=== PATIENT | female | born 1950 | race Caucasian/White ===

== ENCOUNTER 2019-10-27 12:20 | Outpatient (RCR) | payer OTHER, SELFPAY | END 2019-10-28 00:01 | LOC: SPT 12:20 | PROVIDERS: Family Provider Nurse Practitioner; Visit Provider Anesthesiology Pain Medicine | DX: M54.2 Cervicalgia (principal) | CPT/HCPCS: 97110; 97161 ==

== ENCOUNTER 2019-10-29 06:00 | Outpatient (RCR) | payer OTHER, MEDICARE, SELFPAY | END 2019-11-28 23:59 | disposition home or self-care (01) | LOC: SPO 06:00 | PROVIDERS: Family Provider Nurse Practitioner; PCP Nurse Practitioner; Visit Provider Anesthesiology Pain Medicine | DX: M54.2 Cervicalgia (principal) | CPT/HCPCS: 97110; 97112; 97140 ==

== ENCOUNTER 2019-12-01 06:00 | Outpatient (RCR) | payer OTHER, MEDICARE, SELFPAY | END 2019-12-27 23:59 | disposition home or self-care (01) | LOC: SPO 06:00 | PROVIDERS: Family Provider Nurse Practitioner; PCP Nurse Practitioner; Visit Provider Anesthesiology Pain Medicine | DX: M54.2 Cervicalgia (principal) | CPT/HCPCS: 97110; 97112; 97124; 97140; 97164; 97530 ==

== ENCOUNTER 2019-12-28 06:00 | Outpatient (RCR) | payer OTHER, MEDICARE, SELFPAY | END 2020-01-06 23:00 | disposition home or self-care (01) | LOC: SPO 06:00 | PROVIDERS: Family Provider Nurse Practitioner; PCP Nurse Practitioner; Visit Provider Anesthesiology Pain Medicine | DX: M54.2 Cervicalgia (principal) | CPT/HCPCS: 97110; 97164; 97530 ==

== ENCOUNTER → 2020-05-24 11:21 | Outpatient (BNVA) | payer MEDICARE, OTHER, SELFPAY | PROVIDERS: Family Provider Nurse Practitioner; PCP Nurse Practitioner; Visit Provider Nurse Practitioner | DX: R10.32 Left lower quadrant pain (principal) | CPT/HCPCS: 74018; 80053; 81000; 85025 ==

== ENCOUNTER 2020-07-28 08:31 | Outpatient (RCR) | payer OTHER, MEDICARE, SELFPAY | END 2020-07-28 23:59 | disposition home or self-care (01) | LOC: SPT 08:31 | PROVIDERS: PCP Nurse Practitioner; Referring Provider Anesthesiology Pain Medicine; Visit Provider Anesthesiology Pain Medicine | DX: M54.2 Cervicalgia (principal) | CPT/HCPCS: 97110; 97161 ==

== ENCOUNTER 2020-07-29 06:00 | Outpatient (RCR) | payer OTHER, MEDICARE, SELFPAY | END 2020-08-28 23:59 | disposition home or self-care (01) | LOC: SPT 06:00 | PROVIDERS: PCP Nurse Practitioner; Referring Provider Anesthesiology Pain Medicine; Visit Provider Anesthesiology Pain Medicine | DX: M54.2 Cervicalgia (principal) | CPT/HCPCS: 97110 ==

== ENCOUNTER 2020-08-29 06:00 | Outpatient (RCR) | payer OTHER, MEDICARE, SELFPAY | END 2020-09-27 23:59 | disposition home or self-care (01) | LOC: SPT 06:00 | PROVIDERS: PCP Nurse Practitioner; Referring Provider Anesthesiology Pain Medicine; Visit Provider Anesthesiology Pain Medicine | DX: M54.2 Cervicalgia (principal) | CPT/HCPCS: 97110 ==

== ENCOUNTER 2020-09-28 06:00 | Outpatient (RCR) | payer OTHER, MEDICARE, SELFPAY | END 2020-10-28 23:59 | disposition home or self-care (01) | LOC: SPT 06:00 | PROVIDERS: PCP Nurse Practitioner; Referring Provider Anesthesiology Pain Medicine; Visit Provider Anesthesiology Pain Medicine | DX: M54.2 Cervicalgia (principal) | CPT/HCPCS: 97110 ==

== ENCOUNTER → 2021-01-18 15:36 | Outpatient (BNVA) | payer MEDICARE, SELFPAY | PROVIDERS: PCP Nurse Practitioner; Visit Provider Nurse Practitioner | DX: B35.4 Tinea corporis (principal); F41.8 Other specified anxiety disorders | CPT/HCPCS: 80053; 81000; 84443; 85025 ==

== ENCOUNTER → 2021-07-05 15:06 | Outpatient (BNVA) | payer MEDICARE, OTHER, SELFPAY | PROVIDERS: PCP Nurse Practitioner; Visit Provider Nurse Practitioner | DX: F41.8 Other specified anxiety disorders (principal); K57.30 Diverticulosis of large intestine without perforation or abscess without bleeding; Z13.6 Encounter for screening for cardiovascular disorders | CPT/HCPCS: 80053; 80061; 84443; 85025 ==

== ENCOUNTER 2021-07-20 11:43 | Outpatient (CLI) | payer MEDICARE, OTHER, SELFPAY ==
[2021-07-20] MEDS: iohexol 300 mg/mL 50 mL Btl PO (12:46)
--- NOTE | 2021-07-20 13:00 | CT_ITS ---
WS: [id number] CT scan of the abdomen and pelvis with Oral and without IV contrast. Additional two-dimensional coron al and sagittal reconstruction was performed. 07/20/2021 Clinical Data: K57.30 - Diverticulosis of large intestine without perfor... Comparison: CT abdomen and pelvis, 09/22/2015. DLP: 717.[address] scans at [facility] use at least one of these dose optimization techniques: automated e xposure control; mA and/or kV adjustment per patient size (includes targeted exams where dose is matc hed to clinical indication); or iterative reconstruction. Findings: The lower lungs show no nodules, masses or effusions. The liver, spleen, adrenal glands and pancreas are normal. There are clips in the gallbladder fossa f rom a cholecystectomy. The kidneys show equal bilateral contrast excretion with no cyst or masses. The abdominal aorta is normal in size. No appendicitis or diverticulitis is seen. Oral contrast is in the stomach and small bowel and there is no bowel dilatation. There are numerous sigmoid diverticula. No abscess, adenopathy, ascites, mass , obstruction or free air is seen. The bladder is unremarkable. The uterus is normal. No inguinal hernia is seen. 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 CT/CT abdomen pelvis wo con [id number] Impression: 1. Numerous sigmoid diverticula but no diverticulitis. 2. Negative for acute intra-abdominal or pelvic abnormalities.
== END 2021-07-20 11:44 | disposition home or self-care (01) ==
PROVIDERS: PCP Nurse Practitioner; Visit Provider Nurse Practitioner
DX: K57.30 Diverticulosis of large intestine without perforation or abscess without bleeding (principal)
CPT/HCPCS: 74176; Q9967

== ENCOUNTER 2021-09-09 08:07 | Outpatient (CLI) | payer MEDICARE, OTHER, SELFPAY ==
--- NOTE | 2021-09-09 08:13 | FL_ITS ---
WS: [id number] Barium Enema TECHNIQUE: Barium enema tip was placed and balloon inflated. With the patient in left lateral decubit us position the barium suspension was instilled into the colon under gravity and pulse fluoroscopic v isualization. Through the enema tip, air was placed intermittently throughout the exam. Once barium a ppeared to opacify the ascending colon and cecum, patient was placed in supine position. Multiple ove rhead radiographs obtained. The barium was evacuated, and postevacuation radiograph was obtained. FLUOROSCOPY TIME: 4.4 minutes CLINICAL INFORMATION: F/U SIGMOID STRICTURES COMPARISON: FINDINGS: [employer] imaging demonstrates lumbar scoliosis convex left with moderate spondylitic changes. Cholecystectomy clips. Disc space narrowing worse at L4-L5. Rapid opacification of the sigmoid colon with 2 short segments of circumferential sigmoid colon narro wing similar to the prior examination. This involves the proximal and mid sigmoid colon. No evidence of high-grade narrowing or flow limiting obstruction. Diverticulosis. Barium rapidly traverses the hepatic and splenic flexures which appear normal. Normal filling of the cecum with normal filling of the appendix. No colonic narrowing or filling defects. FL/FL barium enema [id number] IMPRESSION: 1. 2 short segment sigmoid colon strictures likely due to prior diverticulitis similar to the prior examination. No flow-limiting stenosis. 2. Sigmoid and descending colon diverticulosis. 3. Normal hepatic and splenic flexures. Normal cecum with visualized appendix. 4. No evidence of obstructing mass or suspicious filling defects.
== END 2021-09-09 08:08 | disposition home or self-care (01) ==
LOC: RAD 08:09
PROVIDERS: PCP Nurse Practitioner; Visit Provider Surgery
DX: K56.699 Other intestinal obstruction unspecified as to partial versus complete obstruction (principal); K57.30 Diverticulosis of large intestine without perforation or abscess without bleeding
CPT/HCPCS: 74270

== ENCOUNTER → 2023-05-28 10:32 | Outpatient (BNVA) | payer MEDICARE, OTHER, SELFPAY | PROVIDERS: PCP Nurse Practitioner; Visit Provider Nurse Practitioner | DX: K57.30 Diverticulosis of large intestine without perforation or abscess without bleeding (principal); Z13.6 Encounter for screening for cardiovascular disorders | CPT/HCPCS: 74018; 80053; 80061; 81000; 84443; 85025 ==

== ENCOUNTER → 2023-09-04 11:59 | Outpatient (BNVA) | payer MEDICARE, OTHER, SELFPAY | PROVIDERS: PCP Nurse Practitioner; Visit Provider Nurse Practitioner | DX: R10.9 Unspecified abdominal pain (principal) | CPT/HCPCS: 80053; 81000; 85025 ==

== ENCOUNTER 2023-09-07 14:35 | Outpatient (CLI) | payer MEDICARE, OTHER, SELFPAY ==
[2023-09-07] MEDS: iohexol 350 mg/mL 500 mL Btl (per mL) PO (15:06)
--- NOTE | 2023-09-07 17:00 | CT_ITS ---
WS: [id number] CT ABDOMEN AND PELVIS NONCONTRAST HISTORY: R10.9 - Unspecified abdominal pain, LEFT lower quadrant pain. TECHNIQUE: Imaging performed through the abdomen and pelvis. Coronal and sagittal reformats are submi tted. All CT scans at [facility] use at least one of these dose optimization techniques: auto mated exposure control; mA and/or kV adjustment per patient size (includes targeted exams where dose is matched to clinical indication); or iterative reconstruction. DLP: 280.07 mGy.cm COMPARISON: 07/20/2021 Lower thorax: Lung bases are clear. Visualized heart is normal. No hiatal hernia. Liver: Normal size liver. No mass or bile duct dilatation. Gallbladder: Prior cholecystectomy. Pancreas: Normal size and attenuation. Normal pancreatic duct. No pancreatitis or mass. Spleen: Normal. Adrenal glands: Normal. No mass. Right kidney: Normal size kidney with no mass or hydronephrosis. Left kidney: Normal size kidney with no mass or hydronephrosis. Aorta: Mild atherosclerosis abdominal aorta with no aneurysm. No free fluid, intraperitoneal air or significant lymphadenopathy. GI tract: Normal stomach and small bowel. Mildly tortuous colon. In the descending and sigmoid colon there is mild asymmetric wall thickening and scattered diverticula. Lumen of the colon is narrowed. F ocal area of wall thickening involving the sigmoid. Minimal if any adjacent inflammation. Abdominal wall: Negative. No hernia. Pelvis: Negative Osseous structures: Mild straightening of the normal lumbar lordosis. IMPRESSION: 1. Long segment mild luminal narrowing involving the descending and sigmoid colon with a few diverti cula. Favor this is probably a chronic mild inflammatory stricture. Suggest colonoscopy for further e valuation to exclude neoplasm due to the asymmetric thickening of the wall. 2. No evidence for acute diverticulitis. 3. No free air or adenopathy. 4. Prior cholecystectomy.
== END 2023-09-07 14:36 | disposition home or self-care (01) ==
LOC: RAD 14:36
PROVIDERS: PCP Nurse Practitioner; Visit Provider Nurse Practitioner
DX: K57.30 Diverticulosis of large intestine without perforation or abscess without bleeding (principal); R10.9 Unspecified abdominal pain; Z90.49 Acquired absence of other specified parts of digestive tract
CPT/HCPCS: 74176; Q9967

== ENCOUNTER → 2023-10-12 11:40 | Outpatient (BNVA) | payer MEDICARE, OTHER, SELFPAY | PROVIDERS: PCP Nurse Practitioner; Visit Provider Family Medicine | DX: Z01.818 Encounter for other preprocedural examination (principal) | CPT/HCPCS: 80053; 85025 ==

== ENCOUNTER → 2023-12-06 09:03 | Outpatient (BNVA) | payer MEDICARE, OTHER, SELFPAY | PROVIDERS: PCP Nurse Practitioner; Visit Provider Nurse Practitioner | DX: F41.8 Other specified anxiety disorders (principal); E78.2 Mixed hyperlipidemia | CPT/HCPCS: 80053; 80061; 84443; 85025 ==

== ENCOUNTER → 2024-01-03 17:14 | Outpatient (BNVA) | payer MEDICARE, OTHER, SELFPAY | PROVIDERS: PCP Nurse Practitioner; Visit Provider Nurse Practitioner | DX: R61 Generalized hyperhidrosis (principal) | CPT/HCPCS: 80053; 81000; 85025 ==

== ENCOUNTER 2024-01-28 11:26 | Outpatient (CLI) | payer MEDICARE, OTHER, SELFPAY ==
--- NOTE | 2024-01-28 11:45 | MR_ITS ---
WS: [id number] MRI BRAIN WITHOUT CONTRAST HISTORY: R51.9 - Headache, unspecified COMPARISON: None available. TECHNIQUE: Diffusion imaging, multiplanar T1, T2 and FLAIR imaging obtained. Significant motion artifact on this examination. Patient was unable to remain awake and still for thi s exam. No evidence for acute infarct or hemorrhage. Christian-white matter differentiation is normal. Mild atrophy with no prior infarct. Mild small vessel ischemic disease. Hippocampal evaluation is schrader ited due to motion and rotation. Ventricles and extra-axial spaces are normal. No inferior displacement of cerebellar tonsils. The sella turcica and pituitary gland are unremarkabl e. Dural venous sinuses and [place] demonstrate no abnormality on this unenhanced studies. Paranasal sinuses: Clear. Mastoid air cells: Small amount of fluid in the LEFT mastoid air cells. Calvarium and scalp: Intact. IMPRESSION: 1. Study is limited by motion artifact and rotation. 2. No acute infarct and no hemorrhage. 3. Mild atrophy and mild small vessel ischemic disease.
== END 2024-01-28 11:27 | disposition home or self-care (01) ==
LOC: RAD 11:27
PROVIDERS: PCP Nurse Practitioner; Visit Provider Nurse Practitioner
DX: R51.9 Headache, unspecified (principal); I67.89 Other cerebrovascular disease
CPT/HCPCS: 70551

== ENCOUNTER → 2024-04-14 08:18 | Outpatient (BNVA) | payer MEDICARE, OTHER, SELFPAY | PROVIDERS: PCP Nurse Practitioner; Visit Provider Nurse Practitioner | DX: E78.2 Mixed hyperlipidemia (principal); F41.8 Other specified anxiety disorders | CPT/HCPCS: 80053; 80061; 84443; 85025 ==

== ENCOUNTER 2024-04-25 09:42 | Outpatient (CLI) | payer MEDICARE, OTHER, SELFPAY ==
--- NOTE | 2024-04-25 10:00 | CT_ITS ---
WS: [id number] LDCT LUNG CANCER SCREENING HISTORY: Z87.891 - Personal history of nicotine dependence TECHNIQUE: Axial imaging performed from the apices to 1 cm below the costophrenic angles. Coronal and sagittal reformats are submitted with axial MIP series. All CT scans at [facility] use at least one of these dose optimization techniques: automated exposure control; mA and/or kV adjustment per patient size (includes targeted exams where dose is matched to clinical indication); or iterativ e reconstruction. DLP: 43.31 mGy.cm DIvol: Mean CTDIvol: 0.70 (mGy) COMPARISON: None available. Diagnostic quality: Satisfactory Lungs: Mild hyperexpansion. LEFT perifissural nodule 6 mm. No pulmonary nodule or mass. No endobronch ial lesions. No groundglass attenuation. Heart: Normal size heart with no pericardial effusion.. Other findings: Moderate atherosclerosis thoracic aorta. Normal size pulmonary artery. Moderate coron krystal artery calcification. Small hiatal hernia. Prior cholecystectomy. No adrenal mass. CT/CT lung screening [id number] IMPRESSION: LUNG-RADS: 2-Benign Appearance or Behavior FOLLOW UP: 12 Month: Continue annual screening with LDCT OTHER FINDINGS (S MODIFIER): None.
== END 2024-04-25 09:43 | disposition home or self-care (01) ==
LOC: RAD 09:42
PROVIDERS: PCP Nurse Practitioner; Visit Provider Nurse Practitioner
DX: Z87.891 Personal history of nicotine dependence (principal); I70.0 Atherosclerosis of aorta; I25.10 Atherosclerotic heart disease of native coronary artery without angina pectoris; K44.9 Diaphragmatic hernia without obstruction or gangrene
CPT/HCPCS: 71271

== ENCOUNTER → 2024-04-29 13:59 | Outpatient (BNVA) | payer MEDICARE, OTHER, SELFPAY | PROVIDERS: PCP Nurse Practitioner; Visit Provider Nurse Practitioner | DX: Z12.11 Encounter for screening for malignant neoplasm of colon (principal) | CPT/HCPCS: 82270 ==

== ENCOUNTER → 2024-05-22 10:38 | Outpatient (BNVA) | payer MEDICARE, OTHER, SELFPAY | PROVIDERS: PCP Nurse Practitioner; Visit Provider Nurse Practitioner | DX: K63.9 Disease of intestine, unspecified (principal); K57.30 Diverticulosis of large intestine without perforation or abscess without bleeding | CPT/HCPCS: 82270; 85025 ==

== ENCOUNTER → 2024-09-18 12:18 | Outpatient (BNVA) | payer MEDICARE, OTHER, SELFPAY | PROVIDERS: PCP Nurse Practitioner; Visit Provider Nurse Practitioner | DX: F41.8 Other specified anxiety disorders (principal) | CPT/HCPCS: 80053; 85025 ==

== ENCOUNTER → 2025-03-02 11:57 | Outpatient (BNVA) | payer MEDICARE, OTHER, SELFPAY | PROVIDERS: PCP Nurse Practitioner; Visit Provider Nurse Practitioner | DX: F41.8 Other specified anxiety disorders (principal); E78.2 Mixed hyperlipidemia; E55.9 Vitamin D deficiency, unspecified | CPT/HCPCS: 80053; 80061; 82306; 82607; 84443 ==

== ENCOUNTER → 2025-06-11 10:44 | Outpatient (BNVA) | payer MEDICARE, OTHER, SELFPAY | PROVIDERS: PCP Nurse Practitioner; Visit Provider Emergency Medicine | DX: M25.572 Pain in left ankle and joints of left foot (principal) | CPT/HCPCS: 73610 ==

== ENCOUNTER 2025-06-25 06:56 | Outpatient (CLI) | payer MEDICARE, OTHER, SELFPAY ==
--- NOTE | 2025-06-25 07:15 | CT_ITS ---
WS: [id number] LDCT LUNG CANCER SCREENING HISTORY: Z87.891 - Personal history of nicotine dependence TECHNIQUE: Axial imaging performed from the apices to 1 cm below the costophrenic angles. Coronal and sagittal reformats are submitted with axial MIP series. All CT scans at [facility] use at least one of these dose optimization techniques: automated exposure control; mA and/or kV adjustment per patient size (includes targeted exams where dose is matched to clinical indication); or iterative reconstruction. DLP: 45.00 mGy.cm DIvol: Mean CTDIvol: 0.80 (mGy) COMPARISON: 04/25/2024 Diagnostic quality: Satisfactory Lungs: Moderate pulmonary hyperinflation. Reidentified are LEFT perifissural nodules. There are 2 nodules with the largest measuring 6 mm. Subsegmental linear areas of atelectasis at the lung bases. No mass or nodules. Heart: Normal size heart with no pericardial effusion.. Extensive coronary artery calcifications. Other findings: Moderate atherosclerosis aorta. Normal size pulmonary artery. No pathologic lymph nodes. Small hiatal hernia. Prior cholecystectomy. Mild osteopenia. CT/CT lung screening [id number] IMPRESSION: LUNG-RADS: 2-Benign Appearance or Behavior FOLLOW UP: 12 Month: Continue annual screening with LDCT OTHER FINDINGS (S MODIFIER): None.
== END 2025-06-25 06:57 | disposition home or self-care (01) ==
LOC: RAD 06:58
PROVIDERS: PCP Nurse Practitioner; Visit Provider Nurse Practitioner
DX: Z12.2 Encounter for screening for malignant neoplasm of respiratory organs (principal); R91.8 Other nonspecific abnormal finding of lung field; Z87.891 Personal history of nicotine dependence; J98.11 Atelectasis
CPT/HCPCS: 71271

== ENCOUNTER → 2025-08-17 11:58 | Outpatient (BNVA) | payer MEDICARE, OTHER, SELFPAY | PROVIDERS: PCP Nurse Practitioner; Visit Provider Nurse Practitioner | DX: I10 Essential (primary) hypertension (principal) | CPT/HCPCS: 74018; 80053; 81000; 85025 ==

== ENCOUNTER → 2025-09-21 16:01 | Outpatient (BNVA) | payer MEDICARE, OTHER, SELFPAY | PROVIDERS: PCP Nurse Practitioner; Visit Provider Nurse Practitioner | DX: I10 Essential (primary) hypertension (principal); E78.2 Mixed hyperlipidemia; E55.9 Vitamin D deficiency, unspecified | CPT/HCPCS: 80053; 80061; 82607; 84425; 84443; 85025 ==

== ENCOUNTER 2025-10-01 12:00 | Outpatient (CLI) | payer MEDICARE, OTHER, SELFPAY ==
--- NOTE | 2025-10-01 12:10 | XR_ITS ---
WS: [id number] Exam: XR abdomen 1V* [id number] Date/Time of Exam: 10/01/2025 12:12 PM Reason For Exam: K57.30 - Diverticulosis of large intestine without perfor... DLP: Comparison 08/17/2025. No bowel obstruction or pneumoperitoneum. No sign of organ enlargement. Signs of prior cholecystectomy as well as pelvic surgery. Bony structures are intact. Moderate DJD of the L-spine and mild levoscoliosis. XR/XR abdomen 1V* [id number] IMPRESSION: 1. No acute abdominal process identified.
== END 2025-10-01 12:01 | disposition home or self-care (01) ==
LOC: RAD 12:03
PROVIDERS: PCP Nurse Practitioner; Visit Provider Nurse Practitioner
DX: K57.30 Diverticulosis of large intestine without perforation or abscess without bleeding (principal); Z90.49 Acquired absence of other specified parts of digestive tract; M47.896 Other spondylosis, lumbar region; M41.86 Other forms of scoliosis, lumbar region
CPT/HCPCS: 74018